=== PATIENT | female | born 1955 | race Caucasian/White ===

== ENCOUNTER → 2017-03-15 | Outpatient (CLI) | payer BC ==
[~2017-03-15] MED LIST: AMT10 PO; ATEN-173 PO; ATOR-22 PO; FLUO20CA35 PO; LOSA100T2 PO; POTA-327 PO; PRLSR20 PO; SYN125 PO
[2017-03-15 13:37] LABS: ESTIMATED AVERAGE GLUCOSE 137 mg/dl; HA1C FLAG Normal (Normal)
[2017-03-15 20:03] LABS: BLOOD UREA NITROGEN 13 mg/dl (7-18); BUN/CREATININE RATIO 14.6 (10-20); CALCIUM 9.2 mg/dl (8.5-10.1); CARBON DIOXIDE 30 mmol/L (21-32); CHLORIDE 101 mmol/L (98-107); CHOLESTEROL 145 mg/dl (0-200); CREATININE 0.87 mg/dl (0.60-1.20); GLUCOSE 134 mg/dl (70-99); POTASSIUM 3.7 mmol/L (3.5-5.1); SODIUM 139 mmol/L (136-145)
[2017-03-15 20:18] LABS: ALB/GLOB RATIO 0.9 (0.9-2); ALKALINE PHOSPHATASE 110 U/L (45-117); ALT/SGPT 38 U/L (12-78); AST/SGOT 18 U/L (15-37); CHOLESTEROL/HDL RATIO 2.9; HDL CHOLESTEROL 50 mg/dl; LDL CHOLESTEROL CALCULATED 67 mg/dl; TRIGLYCERIDES 142 mg/dl (0-150); VERY LOW DENSITY LIPOPROT CALC 28 mg/dl
== END | disposition home or self-care (01) ==
LOC: C.LABPVFM 11:05
PROVIDERS: ATTEND Family Medicine
DX: Z11.59 Encounter for screening for other viral diseases (principal); R73.09 Other abnormal glucose; E03.9 Hypothyroidism, unspecified

== ENCOUNTER → 2017-07-26 | Outpatient (CLI) | payer BC ==
--- NOTE | 2017-07-26 14:14 | MAMMOGRAPHY REPORT ---
BILATERAL DIGITAL SCREENING MAMMOGRAM WITH CAD: 07/26/2017 CLINICAL HISTORY: Routine screening. Patient has no complaints. TECHNIQUE: Current study was also evaluated with a Computer Aided Detection (CAD) system. Bilateral CC and MLO views were obtained. COMPARISON: Comparison is made to exams dated: 07/19/2016 mammogram, 07/16/2015 mammogram, 02/10/2014 m ammogram, 05/11/2012 mammogram, 04/21/2010 mammogram, and 05/02/2011 mammogram - [facility] nter. BREAST COMPOSITION: The tissue of both breasts is almost entirely fatty. FINDINGS: No suspicious masses, calcifications, or areas of architectural distortion are noted in ei ther breast. There has been no significant interval change compared to prior exams. IMPRESSION: ACR BI-RADS CATEGORY 1: NEGATIVE There is no mammographic evidence of malignancy. A 1 year screening mammogram is recommended. The pa tient will receive written notification of the results. Approximately 10% of breast cancers are not detected with mammography. A negative mammographic report should not delay biopsy if a clinically suggestive mass is present. Araseli Ferguson M.D. /:07/26/2017 10:07:06 Counter Intelligence: Alycia RIOS,R, M, [facility] letter sent: Normal 1/2 BI-RADS Code: ACR BI-RADS Category 1: Negative
== END | disposition home or self-care (01) ==
LOC: C.MAMM 08:56
PROVIDERS: ATTEND Family Medicine
DX: Z12.31 Encounter for screening mammogram for malignant neoplasm of breast (principal)

== ENCOUNTER → 2017-09-16 | Outpatient (CLI) | payer BC ==
[2017-09-16 13:42] LABS: ESTIMATED AVERAGE GLUCOSE 128 mg/dl; HA1C FLAG Normal (Normal)
[2017-09-16 13:44] LABS: ALT/SGPT 36 U/L (12-78); AST/SGOT 19 U/L (15-37); BLOOD UREA NITROGEN 16 mg/dl (7-18); CALCIUM 9.6 mg/dl (8.5-10.1); CARBON DIOXIDE 29 mmol/L (21-32); CHLORIDE 100 mmol/L (98-107); CREATININE 0.92 mg/dl (0.60-1.20); GLUCOSE 148 mg/dl (70-99); POTASSIUM 3.7 mmol/L (3.5-5.1); SODIUM 136 mmol/L (136-145)
[2017-09-16 13:56] LABS: ALB/GLOB RATIO 0.8 (0.9-2); ALKALINE PHOSPHATASE 104 U/L (45-117); CHOLESTEROL 150 mg/dl (0-200); CHOLESTEROL/HDL RATIO 2.9; HDL CHOLESTEROL 52 mg/dl; LDL CHOLESTEROL CALCULATED 76 mg/dl; TRIGLYCERIDES 110 mg/dl (0-150); VERY LOW DENSITY LIPOPROT CALC 22 mg/dl
== END | disposition home or self-care (01) ==
LOC: C.LABPVFM 08:33
PROVIDERS: ATTEND Family Medicine
DX: I10 Essential (primary) hypertension (principal); E78.2 Mixed hyperlipidemia; E03.9 Hypothyroidism, unspecified; E11.319 Type 2 diabetes mellitus with unspecified diabetic retinopathy without macular edema

== ENCOUNTER → 2018-01-04 | Outpatient (CLI) | payer OTHER | END | disposition home or self-care (01) | LOC: C.MAMM 08:24 | PROVIDERS: ATTEND Family Medicine | DX: Z00.00 Encounter for general adult medical examination without abnormal findings (principal); M85.832 Other specified disorders of bone density and structure, left forearm ==

== ENCOUNTER → 2018-03-28 | Outpatient (CLI) | payer OTHER ==
[2018-03-28 12:12] LABS: BASO % 0.4 %; BASO ABS # 0.02 K/uL (0-0.2); EOS % 5.1 %; EOS ABS # 0.28 K/uL (0-0.5); HEMATOCRIT 42.2 % (37-47); HEMOGLOBIN 14.3 g/dL (12.0-16.0); IG# 0.01 K/uL (0.00-0.02); LYMPH % 38.8 %; LYMPH ABS # 2.12 K/uL (1.2-3.4); MEAN CELL VOLUME 83.4 fL (80-100); MEAN CORPUSCULAR HEMOGLOBIN 28.3 pg (25-34); MEAN CORPUSCULAR HGB CONC 33.9 g/dl (32-36); MEAN PLATELET VOLUME 10.6 fL (7.4-10.4); MONO % 4.9 %; MONO ABS # 0.27 K/uL (0.11-0.59); NEUT % 50.6 %; NEUT ABS # 2.76 K/uL (1.4-6.5); PLATELET COUNT 267 K/uL (130-400); RED CELL DISTRIBUTION WIDTH CV 13.6 % (11.5-14.5); RED CELL DISTRIBUTION WIDTH SD 40.4 fL (36.4-46.3); WHITE BLOOD COUNT 5.46 K/uL (4.8-10.8)
[2018-03-28 12:16] LABS: HEMOGLOBIN A1C 6.1 % (4.5-5.6)
[2018-03-28 12:21] LABS: ALBUMIN 3.7 gm/dl (3.4-5.0); ALT/SGPT 34 U/L (12-78); AST/SGOT 18 U/L (15-37); BLOOD UREA NITROGEN 15 mg/dl (7-18); CALCIUM 9.3 mg/dl (8.5-10.1); CARBON DIOXIDE 30 mmol/L (21-32); CHOLESTEROL 157 mg/dl (0-200); CREATININE 0.82 mg/dl (0.60-1.20); GLUCOSE 128 mg/dl (70-99); POTASSIUM 3.5 mmol/L (3.5-5.1); SODIUM 136 mmol/L (136-145)
[2018-03-28 12:31] LABS: ALKALINE PHOSPHATASE 103 U/L (45-117); LDL CHOLESTEROL CALCULATED 83 mg/dl; TOTAL PROTEIN 8.1 gm/dl (6.4-8.2)
== END | disposition home or self-care (01) ==
LOC: C.LAB1850 09:38
PROVIDERS: ATTEND Family Medicine
DX: I10 Essential (primary) hypertension (principal)